=== PATIENT | male | born 1965 | race Caucasian/White ===

== ENCOUNTER 2020-02-13 12:19 | Outpatient (CLI) | payer OTHER ==
--- NOTE | 2020-02-13 14:37 | RAD ---
LUMBAR SPINE 2 VIEWS: HISTORY: Postop followup. COMPARISON: 12/29/2019. FINDINGS: Postop changes at L5-S1 again noted. Pedicle screws on the left with interbody implant. No change i n alignment. Vertebral bodies maintain height. Loss of disk space at L4-5 and L5-S1 again noted. D egenerative spurring and facet hypertrophy again noted. IMPRESSION: Stable degenerative and postoperative changes of lumbar spine when compared to prior exam. POS: OFF
== END 2020-02-13 12:20 | disposition home or self-care (01) ==
LOC: TBSIIMAG 12:19
PROVIDERS: ATTEND Neurological Surgery
DX: M47.26 Other spondylosis with radiculopathy, lumbar region (principal); Z98.890 Other specified postprocedural states
CPT/HCPCS: 72100

== ENCOUNTER 2020-07-25 08:25 | Outpatient (CLI) | payer OTHER | END 2020-07-25 08:26 | disposition home or self-care (01) | LOC: TBSIIMAG 08:25 | PROVIDERS: ATTEND Neurological Surgery | DX: M47.26 Other spondylosis with radiculopathy, lumbar region (principal) | CPT/HCPCS: 72100 ==

== ENCOUNTER 2020-10-26 07:00 | Day surgery (SDC) | payer OTHER ==
[2020-10-24 13:50] VITALS: BMI 25.7
[2020-10-26 07:55] VITALS: BP 127/82; TEMP 98
[2020-10-26] MEDS ORDERED: Iopamidol-M 200 41% 20 ML VIAL ONE (10:10)
== END 2020-10-26 10:00 | disposition home or self-care (01) ==
LOC: RAD 07:00 → EEVIPCON 07:00 → RAD 10:00
PROVIDERS: ATTEND Family Medicine
PROC: B02B1ZZ Computerized Tomography (CT Scan) of Spinal Cord using Low Osmolar Contrast (ICD-10-PCS; principal; 2020-10-26)
DX: M96.1 Postlaminectomy syndrome, not elsewhere classified (principal); M47.26 Other spondylosis with radiculopathy, lumbar region; G89.4 Chronic pain syndrome; M48.061 Spinal stenosis, lumbar region without neurogenic claudication; K57.30 Diverticulosis of large intestine without perforation or abscess without bleeding; J45.909 Unspecified asthma, uncomplicated; I10 Essential (primary) hypertension; Z79.899 Other long term (current) drug therapy; Z88.5 Allergy status to narcotic agent; Z88.8 Allergy status to other drugs, medicaments and biological substances
CPT/HCPCS: 62304; 72132; Q9966

== ENCOUNTER 2021-03-04 10:44 | Outpatient (CLI) | payer OTHER ==
[2021-03-05 00:58] LABS: SARS-CoV-2 PCR by NAA Not Detected (NotDetected)
== END 2021-03-04 10:45 | disposition home or self-care (01) ==
LOC: LABBT 10:44
PROVIDERS: ATTEND Specialist
DX: Z01.812 Encounter for preprocedural laboratory examination (principal); M96.1 Postlaminectomy syndrome, not elsewhere classified; G89.4 Chronic pain syndrome; Z20.822 Contact with and (suspected) exposure to COVID-19
CPT/HCPCS: 93005; 93010; U0003; U0005

== ENCOUNTER 2021-03-07 11:59 | Day surgery (SDC) | payer OTHER ==
[2021-03-06 10:45] VITALS: BMI 25.7
[2021-03-07] MEDS ORDERED: EPINEPHrine 1 MG/ML AMP ONE (13:11)
[2021-03-07] MEDS ORDERED: Bupivacaine PF 0.5% 30 ML VIAL ONE (13:11)
[2021-03-07] MEDS ORDERED: CEFAZOLIN 1 GM VIAL ONE (13:21)
[2021-03-07] MEDS ORDERED: Sodium Chloride 0.9% 100 ML ONE (13:21)
[2021-03-07] MEDS ORDERED: Propofol 1,000 MG/100 ML VIAL IV ONE (13:57)
[2021-03-07] MEDS ORDERED: Lidocaine 1% PF 5 ML VIAL ONE (14:26)
[2021-03-07] MEDS ORDERED: Fentanyl 100 MCG/2 ML VIAL ONE ×2 (14:44→15:17)
[2021-03-07] MEDS ORDERED: Propofol 500 MG/50 ML VIAL ONE (15:23)
[2021-03-07] MEDS ORDERED: Labetalol HCl 100 MG/20 ML VIAL ONE (15:23)
== END 2021-03-07 17:15 | disposition home or self-care (01) ==
LOC: SDC 11:59
PROVIDERS: ATTEND Specialist
PROC: 00HU3MZ Insertion of Neurostimulator Lead into Spinal Canal, Percutaneous Approach (ICD-10-PCS; principal; 2021-03-07)
PROC: 0JH70EZ Insertion of Multiple Array Rechargeable Stimulator Generator into Back Subcutaneous Tissue and Fascia, Open Approach (ICD-10-PCS; principal; 2021-03-07)
DX: M96.1 Postlaminectomy syndrome, not elsewhere classified (principal); G89.4 Chronic pain syndrome; M54.16 Radiculopathy, lumbar region; Z79.899 Other long term (current) drug therapy; Z88.5 Allergy status to narcotic agent; Z88.8 Allergy status to other drugs, medicaments and biological substances; Z91.048 Other nonmedicinal substance allergy status
CPT/HCPCS: 72020; 76000; C1778; C1787; C1820; J0171; J0690; J2704; J3010; J3490; L8689; S0020

== ENCOUNTER 2022-07-25 19:00 | Outpatient (CLI) | payer OTHER | END 2022-07-25 19:01 | disposition home or self-care (01) | LOC: SLEEPLAB 19:00 | PROVIDERS: ATTEND Family Medicine | DX: G47.33 Obstructive sleep apnea (adult) (pediatric) (principal); R06.83 Snoring | CPT/HCPCS: 95810 ==

== ENCOUNTER 2023-02-20 05:52 | Day surgery (SDC) | payer OTHER ==
[2023-02-13 12:58] VITALS: BMI 26.4
[2023-02-13 14:30] LABS: Hematocrit 43.8 % (38.8-50.0); Mean Corpuscular HGB CONC 34.2 g/dL (32.0-36.0); Mean Corpuscular Hemoglobin 31.4 pg (27.0-33.0); Mean Corpuscular Volume 91.6 fl (81.2-95.1); Mean Platelet Volume 9.7 fl (7.4-10.4); Platelet Count 313 10x3/uL (150-450); RBC Distribution Width 12.2 % (11.5-14.5); Red Blood Cell (RBC) Count 4.78 10x6/uL (4.32-5.72)
[2023-02-13 14:53] LABS: Prothrombin Time 10.7 sec (9.5-12.1)
[2023-02-13 14:55] LABS: Anion Gap 15 mmol/L (10-20); BUN (Urea Nitrogen) 13 mg/dL (8.4-25.7); Calc. Creatinine Clearance 103 mL/min (70-130); Calcium 8.5 mg/dL (7.8-10.44); Carbon Dioxide 24 mmol/L (22-29); Chloride 104 mmol/L (98-107); Estimated GFR 93; Glucose 87 mg/dL (70-105); Potassium 4.2 mmol/L (3.5-5.1); Sodium 139 mmol/L (136-145)
[2023-02-20] MEDS ORDERED: Heparin 25,000 units/D5W 500 ML ONE (06:47)
[2023-02-20] MEDS ORDERED: Heparin 10,000 UNITS/ 10 ML VIAL ONE (06:47)
[2023-02-20] MEDS ORDERED: Protamine Sulfate 50 MG/5 ML VIAL ONE (06:47)
[2023-02-20] MEDS ORDERED: Propofol 1,000 MG/100 ML VIAL IV ONE ×2 (07:23)
[2023-02-20] MEDS ORDERED: fentaNYL 50 mcg/mL 1 mL Vial ONE ×3 (07:23→09:00)
[2023-02-20] MEDS ORDERED: Midazolam HCl 2 mg/2 ml Vial ONE ×2 (07:23→09:00)
[2023-02-20] MEDS ORDERED: NEOSTIGMINE 3 MG/3 ML SYR 3 MG/3 ML SYRINGE ONE (07:40)
[2023-02-20] MEDS ORDERED: PROPOFOL 200 MG/20 ML VIAL ONE (07:40)
[2023-02-20] MEDS ORDERED: diphenhydrAMINE 50 MG/ML VIAL ONE (07:40)
[2023-02-20] MEDS ORDERED: Rocuronium Bromide 10 MG/ML (10ML VIAL) ONE (07:40)
[2023-02-20] MEDS ORDERED: PHENYLEPHRINE-NS 100 MCG/ML 10 ML SYRINGE ONE (07:40)
[2023-02-20] MEDS ORDERED: Dexamethasone 20 MG/5 ML VIAL ONE (07:40)
[2023-02-20] MEDS ORDERED: Glycopyrrolate 0.2 MG/ML 5 ML SYRINGE ONE (07:40)
== END 2023-02-20 14:00 | disposition home or self-care (01) ==
LOC: SDC 05:52
PROVIDERS: ATTEND Internal Medicine Cardiovascular Disease
DX: I48.0 Paroxysmal atrial fibrillation (principal); I10 Essential (primary) hypertension; J45.909 Unspecified asthma, uncomplicated; K21.9 Gastro-esophageal reflux disease without esophagitis; E04.1 Nontoxic single thyroid nodule; G47.00 Insomnia, unspecified; Z98.890 Other specified postprocedural states; Z88.5 Allergy status to narcotic agent; Z88.8 Allergy status to other drugs, medicaments and biological substances; Z79.01 Long term (current) use of anticoagulants; Z79.899 Other long term (current) drug therapy; Z92.89 Personal history of other medical treatment
CPT/HCPCS: 80048; 85027; 85347; 85610; 93005; 93010; 93312; 93656; C1732; C1759; C1760; C1894; C2630; J1100; J1200; J1644; J2250; J2704; J2720; J3010